=== PATIENT | male | born 1980 | race Caucasian/White ===

== ENCOUNTER 2017-03-19 18:59 | Emergency (ER) | payer OTHER ==
[2017-03-19] MEDS ORDERED: Ketorolac 60 MG/2 ML SDV ONE (19:34)
[2017-03-19] MEDS ORDERED: Ketorolac 30 MG/ML SDV ONE (19:37)
--- NOTE | 2017-03-19 19:47 | EDM.PDOC ---
ED HPI GENERAL MEDICAL PROBLEM - General Chief Complaint: Headache Stated Complaint: WEAKNESS Time Seen by Provider: 03/19/17 19:15 Source of Information: Reports: Patient ([id number]), Family - History of Present Illness INITIAL COMMENTS - FREE TEXT/NARRATIVE: 36-year-old male present to the emergency room with complaints of a moderate frontal headache. Patient states that he was visiting home for the Thanksgiving and there were sitting at the table he began experiencing some complaints of dizziness and feelings of possible near syncopal episodes. He noticed that when people were talking it sounded slurred. His mother noticed that he was having some problems and she is an EMT and took his blood pressure. She noticed that he was tachycardic, sweaty and his blood pressure was elevated. He denies of syncopal episode. He is otherwise healthy and does not take any medications or have any allergies. He had a couple beers over a few hours. His headache began soon after this episode of dizziness and lightheadedness. He has had headaches before. He denies that this is the worst headache he ever experience. He notices a little bit of photophobia but denies needing to have the lights dimmed in the room. He denies chest pain, shortness of breath, nausea and/or vomiting. He denies significant abdominal pain, swelling in his legs. States that he's had some numbness in his arms are about 2 months but this actually feels like it's improved this evening. He has no history of migraines. No other significant medical problems or history is pertinent. Patient states that he's had similar episodes of this morning on for at least one year. He is somewhat further evaluation for this. Onset: Today Onset Date: 03/19/17 Onset Time: 19:20 Duration: Minutes:, Constant Location: Reports: Head Quality: Reports: Pressure Severity: Moderate Improves with: Reports: None Worsens with: Reports: None Associated Symptoms: Reports: Headaches. Denies: Confusion, Chest Pain, Diaphoresis, Fever/Chills, Nausea/Vomiting, Rash, Seizure, Shortness of Breath, Syncope Treatments CLASSIFICATION COUNSELOR: Reports: Other (see below) (Benadryl) - Related Data Allergies Allergy/AdvReac Type Severity Reaction Status Date / Time No Known Drug Allergies Allergy Other Verified 03/19/17 19:11 Home Meds: Home Meds . [No Known Home Meds] 03/19/17 [History] ED ROS GENERAL - Review of Systems Review Of Systems: See Below Constitutional: Denies: Fever, Chills, Night Sweats, Diaphoresis HEENT: Denies: Eye Pain, Vertigo, Vision Change Respiratory: Denies: Shortness of Breath Cardiovascular: Reports: Lightheadedness. Denies: Chest Pain, Blood Pressure Problem, Edema, Palpitations Endocrine: Reports: No Symptoms GI/Abdominal: Reports: No Symptoms : Reports: No Symptoms Musculoskeletal: Reports: No Symptoms Skin: Denies: Diaphoresis, Pruritis, Rash Neurological: Reports: Dizziness, Headache, Numbness (been present for 2 months in both arms). Denies: Confusion, Seizure, Syncope, Trouble Speaking, Difficulty Walking, Change in Speech, Gait Disturbance Psychiatric: Reports: No Symptoms Hematologic/Lymphatic: Reports: No Symptoms Immunologic: Reports: No Symptoms - Physical Exam Exam: See Below Exam Limited By: No Limitations General Appearance: Alert, WD/WN, No Apparent Distress Eye Exam: Bilateral Eye: EOMI, PERRL Ears: Normal External Exam Nose: Normal Inspection Throat/Mouth: Normal Inspection, Normal Lips, Normal Teeth, Normal Oropharynx, Normal Voice, No Airway Compromise Head Exam: Atraumatic, Normocephalic Neck: Normal Inspection, Supple, Non-Tender, Full Range of Motion. No: Carotid Bruit, Lymphadenopathy (L), Lymphadenopathy (R) Respiratory/Chest: No Respiratory Distress, Lungs Clear, Normal Breath Sounds Cardiovascular: Normal Peripheral Pulses, Regular Rate, Rhythm, No Edema, No JVD , No Murmur GI/Abdominal: Normal Bowel Sounds, Soft, Non-Tender, No Abnormal Bruit Neuro Exam (Abbreviated): Alert, Oriented, CN II-XII Intact, Normal Cognition, Normal Reflexes, No Motor/Sensory Deficits, Other (clonus was negative bilaterally, Merlin's is negative bilaterally) DTR: 1+: Bicep (R), Bicep (L), Tricep (R), Tricep (L), Patella (R), Achilles (R) , Achilles (L), 2+: Patella (L) Back Exam: Normal Inspection Extremities: Normal Inspection, Normal Range of Motion, Non-Tender, No Pedal Edema, Other (motor strength are 5 out of 5 throughout upper and lower extremities which include finger abduction wrist extension biceps triceps shoulder abduction knee extension and ankle dorsal plantar flexion bilaterally) Psychiatric: Normal Affect, Normal Mood Skin Exam: Warm, Dry, Intact, Normal Color, No Rash Course - Vital Signs Last Recorded V/S: Last Vital Signs Temp 99.1 F 03/19/17 19:14 Pulse 84 03/19/17 21:00 Resp 18 03/19/17 21:00 BP 130/77 03/19/17 21:00 Pulse Ox 96 03/19/17 21:00 - Orders/Labs/Meds Orders: Active Orders 24 hr Category Date Time Status Sodium Chloride 0.9% [Normal Saline] 1,000 ml Med 03/19/17 21:00 Ordered IV ASDIRECTED Medication Orders Sodium Chloride (Normal Saline) 1,000 mls @ 1,000 mls/hr IV ASDIRECTED SAM Last Admin: 03/19/17 21:00 Dose: 1,000 mls/hr Labs: Laboratory Tests 03/19/17 03/19/17 03/19/17 Range/Units 20:10 20:10 21:35 WBC 7.2 (5.0-10.0) 10^3/uL RBC 5.45 (4.50-6.00) 10^6/uL Hgb 15.0 (13.0-17.0) g/dL Hct 44.3 (40.0-52.0) % MCV 81.3 L (82.0-92.0) fL MCH 27.5 (27.0-31.0) pg MCHC 33.8 (32.0-36.0) g/dL RDW 13.0 (11.5-14.5) % Plt Count 199 (150-300) 10^3/uL MPV 7.6 (7.4-10.4) fL Neut % (Auto) 65.6 (50.0-70.0) % Lymph % (Auto) 27.1 (20.0-40.0) % Greenlee % (Auto) 5.8 (2.0-8.0) % Eos % (Auto) 1.3 (1.0-3.0) % Baso % (Auto) 0.2 (0.0-1.0) % Neut # (Auto) 4.7 (2.5-7.0) 10^3/uL Lymph # (Auto) 2.0 (1.0-4.0) 10^3/uL Greenlee # (Auto) 0.4 (0.1-0.8) 10^3/uL Eos # (Auto) 0.1 (0.1-0.3) 10^3/uL Baso # (Auto) 0.0 (0.0-0.1) 10^3/uL Sodium 140 (136-145) mmol/L Potassium 4.1 (3.3-5.3) mmol/L Chloride 103 (98-115) mmol/L Carbon Dioxide 27.5 (21.0-32.0) mmol/L BUN 17 (6-25) mg/dL Creatinine 1.12 (0.51-1.17) mg/dL Est Cr Clr Drug Dosing 102.00 mL/min Estimated GFR (MDRD) > 60 mL/min Glucose 95 (70-110) mg/dL Calcium 9.1 (8.7-10.3) mg/dL Specimen Type Urincc Urine Color Dark yellow H (YELLOW) Urine Appearance Clear (CLEAR) Urine pH 6.5 (5.0-9.0) Ur Specific Straughn 1.020 (1.005-1.030) Urine Protein Negative (NEGATIVE) mg/dL Urine Glucose (UA) Negative (NEGATIVE) mg/dL Urine Ketones Negative (NEGATIVE) mg/dL Urine Occult Blood Negative (NEGATIVE) Urine Nitrite Negative (NEGATIVE) Urine Bilirubin Negative (NEGATIVE) Urine Urobilinogen 0.2 (0.2-1.0) E.U./dL Ur Leukocyte Esterase Negative (NEGATIVE) Urine RBC 0-5 /HPF Urine WBC Not seen /HPF Ur Epithelial Cells Rare /LPF Urine Bacteria Not seen (NONE TO FEW) /HPF Urine Mucus Many H (NEGATIVE) /LPF Meds: Medications Generic Name Dose Route Start Last Admin Trade Name Freq PRN Reason Stop Dose Admin Sodium Chloride 1,000 mls @ 1,000 mls/hr 03/19/17 21:00 03/19/17 21:00 Normal Saline IV 1,000 mls/hr ASDIRECTED SAM Administration Discontinued Medications Generic Name Dose Route Start Last Admin Trade Name Freq PRN Reason Stop Dose Admin Acetaminophen 1,000 mg 03/19/17 20:31 03/19/17 20:33 Tylenol Extra Strength PO 03/19/17 20:32 1,000 mg ONETIME ONE Administration Acetaminophen Confirm 11/18/17 20:32 03/19/17 20:40 Tylenol Extra Strength Administered 03/19/17 20:33 Not Given Dose 1,000 mg .ROUTE .STK-MED ONE Ketorolac Tromethamine Confirm 03/19/17 19:34 03/19/17 19:41 Toradol Administered 03/19/17 19:35 60 mg Dose Administration 60 mg .ROUTE .STK-MED ONE Ketorolac Tromethamine 60 mg 03/19/17 19:37 Toradol .ROUTE 03/19/17 19:38 .STK-MED ONE Ketorolac Tromethamine 60 mg 03/19/17 20:22 03/19/17 20:23 Toradol IM 03/19/17 20:23 Not Given ONETIME ONE Meclizine HCl 25 mg 03/19/17 21:08 03/19/17 21:17 Antivert PO 03/19/17 21:09 25 mg ONETIME ONE Administration - Re-Assessments/Exams Free Text/Narrative Re-Assessment/Exam: 03/19/17 21:55 Patient was given 1 L of fluids, Tylenol thousand milligrams, meclizine 25 mg, patient states that his headache has improved but still present. He feels less lightheaded. Departure - Departure Time of Disposition: 21:56 Disposition: Home, Self-Care 01 Condition: Good Clinical Impression: Frontal headache, Dizziness of unknown cause, Mild dehydration - Discharge Information Instructions: General Headache Without Cause, Near-Syncope, [id number] Referrals: PCP,Not In Area [Primary Care Provider] - Forms: ED Department Discharge Additional Instructions: 1. Rest 2. Oral hydration, water 3. Avoid vigorous activity over the next 48 hours. 4. No driving until the symptoms resolved. 5. Follow-up with your primary care next week. 6. Return to the ER severe headache, dizziness, syncopal episodes, profuse sweating, or tachycardia occurs. - My Orders Last 24 Hours: My Active Orders 03/19/17 21:00 Sodium Chloride 0.9% [Normal Saline] 1,000 ml IV ASDIRECTED - Assessment/Plan Last 24 Hours: My Active Orders 03/19/17 21:00 Sodium Chloride 0.9% [Normal Saline] 1,000 ml IV ASDIRECTED Assessment:: 1. Headache following dizziness and near syncopal episode. 2. Mild dehydration. Plan: 1. Rest 2. Oral hydration, water 3. Avoid vigorous activity over the next 48 hours. 4. No driving until the symptoms resolved. 5. Follow-up with your primary care next week. 6. Return to the ER severe headache, dizziness, syncopal episodes, profuse sweating, or tachycardia occurs.
[2017-03-19] MEDS ORDERED: Ketorolac 60 MG/2 ML SDV IM ONE (20:22)
[2017-03-19] MEDS ORDERED: Acetaminophen 500 MG Tab PO ONE (20:31)
[2017-03-19] MEDS ORDERED: Acetaminophen 500 MG Tab ONE (20:32)
[2017-03-19 20:40] LABS: CHLORIDE,CL 103 mmol/L (98-115); SODIUM,NA 140 mmol/L (136-145)
[2017-03-19] MEDS ORDERED: Sodium Chloride 0.9% 1,000 ML IV SCH (21:00)
[2017-03-19] MEDS ORDERED: Meclizine 25 MG Tab PO ONE (21:08)
== END 2017-03-19 21:50 | disposition home or self-care (01) ==
LOC: KA.ED 18:59
DX: E86.0 Dehydration (principal)
CPT/HCPCS: 36415; 80048; 81001; 85025; 96360; 96372; 99284; A9270; J1885; J7030